=== PATIENT | female | born 1945 | race Caucasian/White ===

== ENCOUNTER → 2016-11-15 | Outpatient (CLI) | payer MEDICARE, BC ==
[~2016-11-15] MED LIST: ALLEGRA-D 12 HO1 TER PO; AMLODIPINE10 MG PO; ASPIRIN 32325 MG/TAB PO; BENTYL 10MG10 MG/CAP PO; CIPRO 500MG TA500 MG PO; COLON HEALTH PROBIOT PO; COZAAR 50MG50 MG/TAB PO; DICYCLOMINE10 MG PO; DIFLUCAN 100MG100 MG PO; DIOVAN HCT 25 M1 TA1 PO; DIOVAN HCT PO; FEXOFENADINE180 MG PO; FLUTICASONE; HCTZ 25MG25 MG PO; HYOSCYAMINE PO; HYZAAR 25 MG-101 TAB PO; K-DUR 10 MEQ T10 MEQ PO; KLOR-CON 1010 MEQ PO; LEVAQUIN 5500 MG/TA1 PO; LEVOTHYROXINE0.2 MG PO; LEXAPRO 10MG10 MG PO; MALOXICAM PO; MOBIC15 MG PO; NEXIUM 40MG40 MG PO; NORCO 325 MG-51 TAB PO; NORVASC; NORVASC 10MG10 MG PO; NORVASC10 MG PO; OMEPRAZOLE D/R20 MG PO; PREDNISONE1 MG PO; PREDNISONE10 MG PO; PREDNISONE20 MG PO; PRENATAL FORMU1 EAC3 PO; PRENATAL1 TA5 PO; PRILOSEC 20MG20 MG PO; SINGULAIR 110 MG/TAB PO; SYNTHROID 0.0.025 MG PO; SYNTHROID0.05 MG/TA PO; SYNTHROID0.2 MG/TAB PO; WELLBUTRIN SR150 M1 PO; XARELTO STARTER20 MG PO; XARELTO20 MG PO; ZYRTEC 10MG10 MG PO
== END ==
LOC: MC.RAD 11-09 13:40
DX: Z12.31 Encounter for screening mammogram for malignant neoplasm of breast (principal)

== ENCOUNTER 2017-04-04 10:22 | Emergency (ER) | payer MEDICARE, BC ==
[2005-04-16 06:44] VITALS: BP 108/63
[~2017-04-04] VITALS: Ht 167.6 cm; Wt 95.5 kg
[2017-04-04 10:25] VITALS: TEMP 99
[2017-04-04 11:11] LABS: BASO # 0.1 (0.0-0.2); BASO % 1.1 % (0.0-2.0); EOS # 0.6 (0.0-0.7); EOS % 7.4 % (0-4.0); GRAN # 5.2 (1.4-6.5); GRAN % 61.2 % (42.2-75.2); HEMATOCRIT 37.6 % (37.0-47.0); HEMOGLOBIN 12.2 g/dl (12.5-16.0); LYMPH # 1.7 (1.2-3.4); LYMPH % 20.4 % (20.0-51.0); MEAN CELL VOLUME 92 fl (80.0-100.0); MEAN CORPUSCULAR HEMOGLOBIN 30 pg (27.0-31.0); MEAN CORPUSCULAR HGB CONC 32 g/dl (33.0-37.0); MONO # 0.8 (0.1-0.6); MONO % 9.4 % (1.7-9.3); PLATELET COUNT 239 K/mm3 (130-400); RED BLOOD COUNT 4.08 M/mm3 (4.10-5.30); REDCELL DISTRIBUTION WIDTH-CV 13.7 % (11.5-14.5); WHITE BLOOD COUNT 8.5 K/mm3 (4.8-10.8)
[2017-04-04 11:15] LABS: INR 1.5 (0.8-3.0); PROTHROMBIN TIME 16.4 SECONDS (9.7-12.8)
[2017-04-04 11:18] LABS: PARTIAL THROMBOPLASTIN TIME 35.5 SECONDS (26.0-37.0)
[2017-04-04 11:22] LABS: ADJUSTED CALCIUM 9.2 mg/dL (8.4-10.2); ALANINE AMINOTRANSFERASE 26 U/L (9-52); ALBUMIN 3.6 gm/dL (3.5-5.0); ALKALINE PHOSPHATASE 74 U/L (50-136); ANION GAP 7 mmol/L (7-16); BILIRUBIN,TOTAL 0.6 mg/dL (0.0-1.0); BLOOD UREA NITROGEN 17 mg/dL (7-17); C-REACTIVE PROTEIN 0.6 mg/dL (0.0-0.9); CALCIUM 8.9 mg/dL (8.4-10.2); CARBON DIOXIDE 27 mmol/L (22-30); CHLORIDE 103 mmol/L (98-107); CREATININE, serum 0.69 mg/dL (0.52-1.25); GLUCOSE 80 mg/dL (74-106); POTASSIUM 3.7 mmol/L (3.4-5.0); SODIUM 137 mmol/L (137-145); TOTAL PROTEIN 5.9 gm/dL (6.4-8.2)
[2017-04-04 11:34] LABS: TROPONIN-I < 0.012 ng/mL (0.000-0.034)
[2017-04-04 11:36] LABS: ERYTHROCYTE SEDIMENTATION RATE 1 mm/hr (0-30)
[2017-04-04] MEDS ORDERED: ANTIVERT 25MG25 MG PO (13:05)
[2017-04-04 13:44] VITALS: BP 136/74; PULSE 61
== END 2017-04-04 13:45 | disposition home or self-care (01) ==
LOC: COL.ER 10:22
PROVIDERS: Emergency Medicine
DX: R51 Headache (principal); R00.2 Palpitations; I10 Essential (primary) hypertension; K21.9 Gastro-esophageal reflux disease without esophagitis; Z86.711 Personal history of pulmonary embolism; Z79.01 Long term (current) use of anticoagulants
CPT/HCPCS: J7030

== ENCOUNTER → 2017-11-18 | Outpatient (CLI) | payer MEDICARE, BC ==
[~2017-11-18] MED LIST changes: +ANTIVERT 25MG25 MG PO
== END ==
LOC: MC.RAD 09:50
DX: Z12.31 Encounter for screening mammogram for malignant neoplasm of breast (principal)

== ENCOUNTER → 2018-05-05 | Outpatient (CLI) | payer MEDICARE, BC | LOC: COL.RAD 13:40 | DX: R10.84 Generalized abdominal pain (principal); R51 Headache; Z90.49 Acquired absence of other specified parts of digestive tract; Z90.710 Acquired absence of both cervix and uterus | CPT/HCPCS: Q9967 ==

== ENCOUNTER 2018-05-07 12:12 | Emergency (ER) | payer MEDICARE, BC ==
[2005-04-16 06:44] VITALS: BP 108/63
[~2018-05-07] VITALS: Ht 167.6 cm; Wt 100.9 kg
[2018-05-07 12:39] VITALS: TEMP 98.6
[2018-05-07 13:23] LABS: COLLECTION METHOD CLEAN CATCH
[2018-05-07 13:28] LABS: BASO # 0.1 (0.0-0.2); EOS # 0.2 (0.0-0.7); EOS % 2.3 % (0-4.0); GRAN # 5.9 (1.4-6.5); GRAN % 68.6 % (42.2-75.2); HEMATOCRIT 45.4 % (37.0-47.0); HEMOGLOBIN 14.8 g/dl (12.5-16.0); LYMPH # 1.6 (1.2-3.4); LYMPH % 18.1 % (20.0-51.0); MEAN CELL VOLUME 90 fl (80.0-100.0); MEAN CORPUSCULAR HEMOGLOBIN 29 pg (27.0-31.0); MEAN CORPUSCULAR HGB CONC 33 g/dl (33.0-37.0); MEAN PLATELET VOLUME 10.5 fl (7.4-10.4); MONO # 0.8 (0.1-0.6); MONO % 9.7 % (1.7-9.3); PLATELET COUNT 253 K/mm3 (130-400); RED BLOOD COUNT 5.07 M/mm3 (4.10-5.30); REDCELL DISTRIBUTION WIDTH-CV 13.2 % (11.5-14.5)
[2018-05-07 13:30] LABS: MUCOUS Present /lpf; PH 8 (5-8); SQUAMOUS EPITHELIAL 0-2 /hpf; URINE APPEARANCE Clear; URINE BACTERIA None Seen /hpf; URINE BILIRUBIN Negative (NEGATIVE); URINE BLOOD 1+ (NEGATIVE); URINE COLOR Straw; URINE GLUCOSE Negative (NEGATIVE); URINE KETONE Negative (NEGATIVE); URINE LEUKOCYTE ESTERASE Negative (NEGATIVE); URINE NITRATE Negative (NEGATIVE); URINE PROTEIN(semi-quant) Negative (NEGATIVE); URINE RBC 0-2 /hpf; URINE UROBILINOGEN Negative (NEGATIVE)
[2018-05-07 13:38] LABS: ALBUMIN 4.2 gm/dL (3.5-5.0); BILIRUBIN,TOTAL 0.7 mg/dL (0.0-1.0); C-REACTIVE PROTEIN 0.7 mg/dL (0.0-0.9); CALCIUM 9.9 mg/dL (8.4-10.2); CREATININE, serum 0.78 mg/dL (0.52-1.25); POTASSIUM 3.3 mmol/L (3.4-5.0); TOTAL PROTEIN 7.4 gm/dL (6.4-8.2)
[2018-05-07 17:14] VITALS: BP 138/75; PULSE 60
== END 2018-05-07 17:14 | disposition home or self-care (01) ==
LOC: COL.ER 12:12
PROVIDERS: Physician Assistant
DX: R19.7 Diarrhea, unspecified (principal); E03.9 Hypothyroidism, unspecified; K58.9 Irritable bowel syndrome, unspecified; Z86.711 Personal history of pulmonary embolism; Z90.49 Acquired absence of other specified parts of digestive tract; Z90.710 Acquired absence of both cervix and uterus; Z88.2 Allergy status to sulfonamides
CPT/HCPCS: J7030

== ENCOUNTER → 2018-05-13 | Outpatient (CLI) | payer MEDICARE, BC | LOC: COL.LAB 10:13 | DX: Z01.89 Encounter for other specified special examinations (principal) ==

== ENCOUNTER → 2018-12-05 | Outpatient (CLI) | payer MEDICARE, BC | LOC: MC.RAD 09:53 | DX: Z12.31 Encounter for screening mammogram for malignant neoplasm of breast (principal) ==

== ENCOUNTER → 2019-02-09 | Outpatient (CLI) | payer MEDICARE, BC | LOC: ZCOL.LAB 17:59 | DX: R06.02 Shortness of breath (principal) ==

== ENCOUNTER → 2019-11-20 | Outpatient (CLI) | payer MEDICARE, BC | LOC: COL.RAD 12:49 | DX: G44.229 Chronic tension-type headache, not intractable (principal); G31.1 Senile degeneration of brain, not elsewhere classified; I67.82 Cerebral ischemia ==

== ENCOUNTER → 2019-12-22 | Outpatient (CLI) | payer MEDICARE, BC | LOC: MC.RAD 12:33 | DX: Z12.31 Encounter for screening mammogram for malignant neoplasm of breast (principal) ==

== ENCOUNTER → 2020-12-22 | Outpatient (CLI) | payer MEDICARE, BC | LOC: MC.RAD 09:30 | DX: Z12.31 Encounter for screening mammogram for malignant neoplasm of breast (principal) ==

== ENCOUNTER 2022-01-16 10:14 | Emergency (ER) | payer MEDICARE, BC ==
[~2022-01-16] VITALS: Ht 167.6 cm; Wt 104.5 kg
[2022-01-16 10:20] VITALS: PULSE 61
[2022-01-16 10:51] LABS: BASO # 0.1 K/mm3 (0.0-0.2); EOS # 0.4 K/mm3 (0.0-0.7); EOS % 3.3 % (0.0-4.0); GRAN # 8.2 K/mm3 (1.4-6.5); GRAN % 65.2 % (42.2-75.2); HEMATOCRIT 40.7 % (37.0-47.0); HEMOGLOBIN 13.1 g/dl (12.5-16.0); LYMPH # 2.7 K/mm3 (1.2-3.4); LYMPH % 21.2 % (20.0-51.0); MEAN CELL VOLUME 84 fl (80.0-100.0); MEAN CORPUSCULAR HEMOGLOBIN 27 pg (27-31); MEAN CORPUSCULAR HGB CONC 32 g/dl (33.0-37.0); MEAN PLATELET VOLUME 9.7 fl (7.4-10.4); MONO # 1.1 K/mm3 (0.1-0.6); MONO % 8.4 % (1.7-9.3); PLATELET COUNT 295 K/mm3 (130-400); RED BLOOD COUNT 4.85 M/mm3 (4.10-5.30); REDCELL DISTRIBUTION WIDTH-CV 16.4 % (11.5-14.5)
[2022-01-16 11:17] LABS: ALBUMIN 3.3 gm/dL (3.4-4.8); BILIRUBIN,TOTAL 0.6 mg/dL (0.2-1.2); CREATININE, serum 0.75 mg/dL (0.57-1.11); POTASSIUM 3.7 mmol/L (3.5-4.5)
[2022-01-16 11:34] LABS: COLLECTION METHOD CLEAN CATCH
[2022-01-16 11:36] LABS: PROLACTIN 17.6 ng/mL (5.18-26.53)
[2022-01-16 11:42] LABS: PH 7 (5-8); SQUAMOUS EPITHELIAL None Seen /hpf (0-10); URINE APPEARANCE Clear (CLEAR/HAZY); URINE BACTERIA None Seen /hpf (NONE SEEN); URINE BILIRUBIN Negative (NEGATIVE); URINE BLOOD Negative (NEGATIVE); URINE COLOR Straw (YELLOW); URINE GLUCOSE Negative (NEGATIVE); URINE KETONE Negative (NEGATIVE); URINE LEUKOCYTE ESTERASE Negative (NEGATIVE); URINE NITRATE Negative (NEGATIVE); URINE PROTEIN(semi-quant) Negative (NEGATIVE); URINE RBC 0-2 /hpf (0-2); URINE UROBILINOGEN Negative (NEGATIVE)
[2022-01-16 12:09] VITALS: BP 159/74
== END 2022-01-16 12:10 | disposition home or self-care (01) ==
LOC: COL.ER 10:14
PROVIDERS: Family Medicine
DX: R53.81 Other malaise (principal); R00.1 Bradycardia, unspecified; Z86.711 Personal history of pulmonary embolism; Z79.01 Long term (current) use of anticoagulants

== ENCOUNTER 2022-01-19 08:37 | Outpatient (CLI) | payer MEDICARE, BC ==
[2005-04-16 06:44] VITALS: BP 108/63
[~2022-01-19] VITALS: Ht 167.6 cm; Wt 109.8 kg
[2022-01-19 09:29] VITALS: BP 164/93; PULSE 58; TEMP 98.7
[2022-01-24 14:30] LABS: ADRENOCORTICOTROPIC HORMONE 7 pg/mL (5-27)
== END 2022-01-19 10:44 ==
LOC: EUO 08:37
PROVIDERS: Family Medicine
DX: I10 Essential (primary) hypertension (principal); B94.8 Sequelae of other specified infectious and parasitic diseases; E66.01 Morbid (severe) obesity due to excess calories
CPT/HCPCS: J0834

== ENCOUNTER → 2022-02-20 | Outpatient (CLI) | payer MEDICARE, BC | LOC: MC.RAD 09:48 | DX: Z12.31 Encounter for screening mammogram for malignant neoplasm of breast (principal) ==